=== PATIENT | male | born 1985 | race Caucasian/White ===

== ENCOUNTER → 2024-08-18 13:59 | Outpatient (REF) | payer OTHER, SELFPAY | LOC: HWRAD 13:59 | PROVIDERS: ATTENDING PHYSICIAN Physician Assistant Medical; FAMILY PHYSICIAN Internal Medicine | DX: J32.9 Chronic sinusitis, unspecified (principal); J30.9 Allergic rhinitis, unspecified | CPT/HCPCS: 70486 ==